=== PATIENT | male | born 1940 | race Caucasian/White ===

== ENCOUNTER 2017-01-12 12:56 | Emergency (ER) | payer MEDICARE, OTHER ==
[~2017-01-12] VITALS: Ht 167.6 cm; Wt 90.9 kg
[~2017-01-12 12:56] MED LIST: BETA30LO2 TP; CLOB15CR3 TOP; CYCL10TA9 PO; FINA5TAB9 PO; GABA600T2 PO; HYG25 PO; LIP40 PO; METF500T4 PO; METO25TA6 PO; SERT50TA PO; SILD100T PO; TERA5CAP6 PO; ZOLP5TAB6 PO
[2017-01-12 12:59] VITALS: BP 149/60; PULSE 48; RESP 16; O2SAT 99
--- NOTE | 2017-01-12 13:27 | ED.REPORT ---
HPI-Chest Pain 40 and Over Date of Service Jan 12, 2017 ED Provider: Dr. Lopez Pt is a 76 y/o male w/ a hx of HTN, HLD, DM, CAD s/p CABG x4, TIA, presenting to the ED with his due to bradycardia onset today. The patient went to Urgent Care today because he has been getting low heart rate readings on his home monitor in the 30s to 40s. The patient was experiencing mild lightheadedness this morning after standing up lasting seconds but has been asymptomatic otherwise. He denies CP, SOB, fatigue, palpitations. The patient takes Metoprolol 50 mg BID and Lisinopril 15 mg daily. The patient has been to his PCP and neurologist multiple times in the past due to episodes of lightheadedness and had some medication changes which relieved his symptoms. Nursing Notes Stated Complaint: LOW PB & PULSE/SENT BY UC/ABNORMAL EKG Chief Complaint: Dysrhythmia/Cardiac Nursing Notes Reviewed: Yes Allergies: Coded Allergies: No Known Allergies (Verified , 01/12/17) Scheduled Aspirin (Aspirin) 81 Mg Tablet 81 MG PO DAILY Atorvastatin (Lipitor) 40 Mg Tablet 40 MG PO DAILY Clobetasol Propionate/Emoll (Clobetasol Emollient 0.05% Crm) 15 Gm Cream..g. 1 APPL TOP BID Finasteride (Finasteride) 1 Mg Tablet 1 MG PO DAILY Glipizide (Glipizide) 5 Mg Tablet 5 MG PO DAILY Lisinopril (Lisinopril) 10 Mg Tablet 10 MG PO DAILY Melatonin (Melatonin) 10 Mg Capsule 10 MG PO HS Metoprolol Tartrate (Metoprolol Tartrate) 50 Mg Tablet 50 MG PO BID Terazosin (Terazosin) 5 Mg Capsule 5 MG PO HS Zolpidem (Zolpidem) 5 Mg Tablet 5 MG PO HS Scheduled PRN Cyclobenzaprine (Cyclobenzaprine) 10 Mg Tablet 10 MG PO TID PRN PRN Spasm General Time Seen by MD: 13:26 Chief Complaint Other (gregory) Hx Obtained From: Patient Arrived By: Walk-in Sudden in Onset?: No Onset Occurred: 1 - 4 hours ago Symptom Duration: 1 - 15 minutes Severity: Current: No pain currently Severity: Maximum: No pain Similar Sx Previous: Yes Past Medical History Past Medical History Carotid artery stenosis BPH Mixed hyperlipidemia Erectile dysfunction Diabetes mellitus type II Hypertension GERD Psoriasis Depression Coronary artery disease s/p CABG x4 Previous TIA in 1994, no residual deficits Depression Anxiety Osteoarthritis Past Surgical History CABG x4 Bilateral TKA's Left shoulder repair Right patellar tendon repair Carotid endarterectomy x2 Family History Noncontributory Smoking History Never Smoker Social History Alcohol Use: "Social" Drug Use: Denies drug use Other Social History: Good social support, , Local resident Ambulatory Status Independent Review of Systems Constitutional: Denies: Chills, Fever Respiratory: Denies: Non-productive cough, Shortness of breath Cardiovascular: Denies: Chest pain GI: Denies: Abdominal pain Neurologic: Reports: Dizziness, Lightheaded, Denies: Abnormal movement, Bladder dysfunction, Bowel dysfunction, Change LOC , Confusion, Focal weakness, Headache, Numbness, Problem walking, Seizure, Shaking, Slurred speech, Spinning sensation, Syncope, Unable to speak, Vision change, Weakness Complete sys rev & neg: except as marked. Physical Exam Initial Vital Signs Vital Signs (First) Date Time Temp Pulse Resp B/P Pulse Ox O2 Delivery O2 Flow Rate FiO2 01/12/17 12:59 36.5 48 16 149/60 99 Room Air Initial VS: Reviewed, Vital signs abnormal Head / Eyes: Atraumatic, Normocephalic, PERRL ENT: Mucous membranes moist, Conjunctiva normal, No scleral icterus Neck: Supple, Full range of motion Extremities: Vascular intact, Neuro intact, No swelling Skin: Warm, Dry, No cyanosis Neurologic: Alert, Oriented, Nonfocal Psychiatric: Mood/affect normal, Behavior normal, Normal thought content General/Constitutional: Awake, Alert, No acute distress, Well appearing, Cooperative, Not toxic appearing Respiratory / Chest: Breath sounds NL, Breath sounds = bilat, No respiratory distress, No rales, No rhonchi, No wheezing Cardiovascular: Regular rhythm, Heart sounds NL, No murmurs, Cap refill not delayed, Peripheral circulation NL Heart Rate / Rhythm: Positive: Bradycardia Abdomen: Atraumatic, Soft, Non-tender, No guarding, No rebound, No distention Interpretation & Diagnostics Lab Results Interpretation Result Diagram: 01/12/17 1440 01/12/17 1440 Test 01/12/17 14:40 White Blood Count 7.2th/mm3 (3.8-10.1) Red Blood Count 3.75mil/mm3 (4.40-5.80) Hemoglobin 11.6g/dL (13.8-17.2) Hematocrit 35.3% (41.0-50.0) Mean Corpuscular Volume 94.1fL (81-100) Mean Corpuscular Hemoglobin 30.9pg (27.0-35.0) Mean Corpuscular Hemoglobin Concent 32.9% (32.0-37.0) Red Cell Distribution Width 12.9% (12.3-15.4) Platelet Count 186bil/L (150-400) Neutrophils (%) (Auto) 73.4% (40-74) Lymphocytes (%) (Auto) 12.0% (14-46) Monocytes (%) (Auto) 9.2% (4-12) Eosinophils (%) (Auto) 4.5% (0-5) Basophils (%) (Auto) 0.6% (0-3) Sodium Level 134mEq/L (134-144) Potassium Level 4.9mEq/L (3.5-5.2) Chloride Level 100mEq/L (97-108) Carbon Dioxide Level 20mmol/L (18-29) Blood Urea Nitrogen 39mg/dL (8-27) Creatinine 1.94mg/dL (0.76-1.27) Estimat Glomerular Filtration Rate 36mL/min (>59) Glucose Level 76mg/dL (60-99) Calcium Level 9.2mg/dL (8.5-10.1) Magnesium Level 2.4mg/dL (1.6-2.6) Total Bilirubin 0.5mg/dL (0.0-1.2) Aspartate Amino Transf (AST/SGOT) 18U/L (0-50) Alanine Aminotransferase (ALT/SGPT) 14U/L (0-44) Alkaline Phosphatase 58U/L (25-160) Troponin T < 0.010ug/L (0.0-0.011) Total Protein 7.3g/dL (6.4-8.4) Albumin 4.3g/dL (3.4-5.0) Hold [place] Top Tube Received (Received) ECG Interpretation ECG Interpretation: Sinus rhythm rate 50 1st degree AV block Time: 13:56 Interpreted by: ED physician Normal ECG Interpretation: No acute ischemic changes X-Ray Chest Interpretation Chest Xray Interpretation: IMPRESSION: No acute cardiopulmonary process is evident. Dictated by: Jonathan Murillo M.D. on 01/12/2017 at 12:56 Approved by: Jonathan Murillo M.D. on 01/12/2017 at 12:57 View: Portable, 1 view Interpretation / Wet Read by: Interpret - Radiologist Re-Eval/Medical Decision Med Decision/Clinical Course 76-year-old male presenting with bradycardia. Patient with heart rate in the 40s and 50s. He is on metoprolol 50 mg twice daily. He reports some lightheadedness earlier today but none while he was in our care. He denied any symptoms of chest pain, difficulty breathing, lightheadedness, dizziness, lethargy, any other symptoms here. He is in sinus bradycardia on EKG. His labs are unremarkable. Patient requests to go home. He is not agreeable with staying in the hospital. I have advised him to then decrease his meToprolol to 25 mg twice daily and follow up with his primary doctor tomorrow for recheck. Time of Eval: 15:25 Re-Evaluation/Progress Note: Pt rechecked. Informed pt of plan for discharge. Pt understands and agrees with plan for discharge. F/U instructions and RTER warnings given. All questions addressed. Counseled Regarding: Diagnosis, Lab results, Need for follow-up, When/why to return to ED Discharge & Departure Primary Impression: Bradycardia Disposition: Home Discharge Condition All VS Reviewed: Yes Condition: Stable Patient Instructions: Bradycardia (ED) Additional Instructions: Thank you for seeking care at the emergency room. It is difficult for us to make definitive diagnoses in the ED but we believe that you are experiencing bradycardia caused by a high dose of Metoprolol. Our primary goal today in the Emergency Department was to evaluate you for any life-threatening conditions. Your evaluation was reassuring. Labs and chest x-ray today were normal. Begin taking a half tablet of your prescribed metoprolol twice each day instead of a full tablet. You should follow-up with your primary doctor tomorrow for a recheck. You should return to the Emergency Department immediately if you develop shortness of breath, chest pain, lightheadedness, passing out, weakness or any other concerning signs or symptoms. Thank you for letting us partake in your care today. Referrals: Alyx Seth MD (PCP) Scribe Attestation Portions of this note were transcribed by Robb Corona. I, Dr. Lopez personally performed the history, physical exam and medical decision-making; I reviewed and confirmed the accuracy of the information in the transcribed note. Signed by Giulia Hayward, 01/12/17 - 1400 copies to: Alyx Seth MD, Ben M MD Jan 12, 2017 13:27 ROBB CORONA Jan 12, 2017 13:57
[2017-01-12] MEDS ORDERED: METO50TA3 PO (13:31)
[2017-01-12] MEDS ORDERED: MELA10CA2 PO (13:31)
[2017-01-12] MEDS ORDERED: ASPI-973 PO (13:31)
[2017-01-12] MEDS ORDERED: LISI10TA PO (13:31)
[2017-01-12] MEDS ORDERED: GLPZ5T PO (13:31)
[2017-01-12] MEDS ORDERED: FINA1TAB17 PO (13:31)
--- NOTE | 2017-01-12 13:59 | DRSVH ---
PROCEDURE: X-RAY CHEST ONE VIEW, PORTABLE ([id number]) INDICATIONS: CHEST PAIN TECHNIQUE: One view of the chest was acquired. COMPARISON: [facility], CT, CT CHEST W CON, 08/26/2016, 12:15. FINDINGS: Surgical changes and devices: Postoperative changes of the left base of the neck are noted. Addition ally, there are postsurgical changes related to a prior median sternotomy. Lungs and pleura: No pleural effusions or pneumothorax. Lungs are clear. Mediastinum: Mediastinal contours appear normal. Heart size is normal. Aortic atherosclerosis is p resent. Bones and chest wall: No suspicious bony lesions. Overlying soft tissues appear unremarkable. IMPRESSION: No acute cardiopulmonary process is evident. Dictated by: Jonathan Murillo M.D. on 01/12/2017 at 12:56 Approved by: Jonathan Murillo M.D. on 01/12/2017 at 12:57
[2017-01-12 14:50] LABS: BASOPHILS % (AUTO) 0.6 % (0-3); EOSINOPHILS % (AUTO) 4.5 % (0-5); MONOCYTES % (AUTO) 9.2 % (4-12); Mean Corpuscular Hemoglobin 30.9 pg (27.0-35.0); Mean Corpuscular Volume 94.1 fL (81-100); NEUTROPHILS % (AUTO) 73.4 % (40-74); Platelet Count 186 bil/L (150-400)
[2017-01-12 15:07] VITALS: BP 132/44; PULSE 50; RESP 16; O2SAT 90
[2017-01-12 15:15] LABS: TROPONIN T < 0.010 ug/L (0.0-0.011)
[2017-01-12 15:24] LABS: Magnesium 2.4 mg/dL (1.6-2.6)
[2017-01-12 15:49] VITALS: BP 154/50; PULSE 45; RESP 15; O2SAT 97
== END 2017-01-12 15:47 | disposition home or self-care (01) ==
LOC: SED 12:56
DX: R00.1 Bradycardia, unspecified (principal); I10 Essential (primary) hypertension; E78.5 Hyperlipidemia, unspecified; E11.9 Type 2 diabetes mellitus without complications; I25.10 Atherosclerotic heart disease of native coronary artery without angina pectoris; Z86.79 Personal history of other diseases of the circulatory system; Z89.511 Acquired absence of right leg below knee; Z89.512 Acquired absence of left leg below knee; Z95.1 Presence of aortocoronary bypass graft; Z86.73 Personal history of transient ischemic attack (TIA), and cerebral infarction without residual deficits; Z79.84 Long term (current) use of oral hypoglycemic drugs; Z79.82 Long term (current) use of aspirin

== ENCOUNTER 2017-01-26 12:57 | Inpatient (IN) | payer MEDICARE, OTHER ==
[~2017-01-26] VITALS: Ht 165.1 cm; Wt 93.6 kg
[2017-01-26] VITALS (11 sets, daily range): BP systolic 111–243; BP diastolic 62–99; PULSE 68–88; RESP 16–21; O2SAT 92–100
[~2017-01-26 12:57] MED LIST changes: +ASPI-973 PO; -BETA30LO2 TP; +FINA1TAB17 PO; -FINA5TAB9 PO; -GABA600T2 PO; +GLPZ5T PO; -HYG25 PO; +LISI10TA PO; +MELA10CA2 PO; -METF500T4 PO; -METO25TA6 PO; +METO50TA3 PO; -SERT50TA PO; -SILD100T PO
--- NOTE | 2017-01-26 13:10 | ED.REPORT ---
HPI-General Illness Date of Service Jan 26, 2017 ED Provider: Antonio Olguin MD Pt is a 76 year old male with a hx of CABG, bilateral carotid endarterectomy, HTN, and bilateral knee replacement presenting to the ED from complaining of 9/10 epigastric pain sudden onset at 0200 this morning when he was sleeping. He was unable to sleep last night due to pain. He describes it as non-radiating epigastric to substernal pain, and denies any radiation of pain to the back. No notable alleviating or exacerbating factors, including exertion. It is been persistent throughout the day but somewhat improved now without intervention. No SOB, vision changes, swelling in the legs, constipation, diarrhea, nausea, vomiting, or urinary symptoms. Denies hx of heart attack after the CABG. He reports that the pain when he had a heart attack 20 years ago was nothing like this, and it was higher up. Nursing Notes Stated Complaint: FROM Chief Complaint: Chest Pain Nursing Notes Reviewed: Yes Allergies: Coded Allergies: No Known Allergies (Verified , 01/26/17) Scheduled ([laxative pill]) 1 TAB PO QAM Aspirin (Aspirin) 81 Mg Tablet 81 MG PO HS Atorvastatin (Lipitor) 40 Mg Tablet 40 MG PO DAILY Cholecalciferol (Vitamin D3) (Vitamin D3) 5,000 Unit Tab.rapdis 5,000 UNIT PO DAILY Finasteride (Finasteride) 1 Mg Tablet 0.5 MG PO HS Glipizide ER (Glipizide ER) 2.5 Mg Tab.er.24 2.5 MG PO DAILY Lisinopril (Lisinopril) 2.5 Mg Tablet Unknown Dose PO DAILY Melatonin/Pyridoxine HCl (B6) (Melatonin 10 mg Tablet) 1 Each Tab.mphase 1 EACH PO HS Metoprolol Tartrate (Metoprolol Tartrate) 25 Mg Tablet 12.5 MG PO BID Terazosin (Terazosin) 5 Mg Capsule 5 MG PO HS Zolpidem (Zolpidem) 5 Mg Tablet 5 MG PO HS Scheduled PRN Cyclobenzaprine (Cyclobenzaprine) 10 Mg Tablet 10 MG PO TID PRN PRN Spasm General Time Seen by MD: 13:09 Chief Complaint Chest pain Hx Obtained From: Patient Arrived By: Walk-in Sudden in Onset?: Yes Onset Occurred: 9 - 12 hours ago Symptom Duration: Since onset Location: : Abdomen: Chest Quality: Painful Radiation: : Does not radiate Severity: Current: Pain level 9 out of 10 Severity: Maximum: Pain level 10 out of 10 Recent Healthcare: No recent doctor visit, No recent hospitalization Similar Sx Previous: No Past Medical History Past Medical History Carotid artery stenosis BPH Mixed hyperlipidemia Erectile dysfunction Diabetes mellitus type II Hypertension GERD Psoriasis Depression Coronary artery disease s/p CABG x4 Previous TIA in 1994, no residual deficits Depression Anxiety Osteoarthritis Past Surgical History CABG x4 Bilateral TKA's Left shoulder repair Right patellar tendon repair Carotid endarterectomy x2 Family History Noncontributory Smoking History Never Smoker Social History Alcohol Use: "Social" Drug Use: Denies drug use Other Social History: Good social support, , Local resident Ambulatory Status Independent Review of Systems Full Review of Systems Constitutional: Denies: Chills, Fever Eyes: Denies: Visual loss bilateral Ears / Nose / Throat: Denies: Nasal congestion Respiratory: Denies: Shortness of breath Cardiovascular: Reports: Chest pain GI: Reports: Abdominal pain, Denies: Bloody/tarry stool, Constipation, Diarrhea, Nausea, Vomiting Male: Denies Dysuria, Denies Urinary frequency, Denies Urinary urgency, Denies Urination decreased, Denies Urination increased Musculoskeletal: Denies: Back pain Skin: Denies Swelling Neurologic: Denies: Vision change Complete sys rev & neg: except as marked. Physical Exam Nursing note and vitals reviewed. Constitutional: Well-developed, well-nourished. Not diaphoretic. Head: Normocephalic and atraumatic. Mouth/Throat: Oropharynx is clear and moist. No oropharyngeal exudate. Eyes: EOM are normal. Pupils are equal, round, and reactive to light. Neck: Supple, no tracheal deviation. Cardiovascular: Normal rate, regular rhythm. Equal and intact distal pulses throughout. No peripheral edema. Pulmonary/Chest: Effort normal and breath sounds normal. No respiratory distress. Abdominal: Soft. No distension. Bowel sounds present. Mild epigastric tenderness. Musculoskeletal: Range of motion grossly intact, moving all extremities. No edema or tenderness appreciated. Neurological: AOx3. Grossly nonfocal exam. Strength and sensation intact and equal to bilateral upper and lower extremities. Skin: Warm and dry, no rashes or pallor appreciated. Psychiatric: Appropriate mood and affect. Behavior appears normal. Vital Signs Vital Signs Date Time Temp Pulse Resp B/P Pulse Ox O2 Delivery O2 Flow Rate FiO2 01/26/17 16:23 76 21 158/71 99 Nasal Cannula 2 01/26/17 15:37 85 16 111/65 98 Room Air 01/26/17 13:50 86 21 208/72 92 Room Air 01/26/17 13:00 36.7 70 20 243/99 100 Room Air Initial VS: Reviewed Interpretation & Diagnostics Lab Results Interpretation Result Diagram: 01/26/17 1318 01/26/17 1318 Test 01/26/17 13:18 01/26/17 16:00 White Blood Count 13.7th/mm3 (3.8-10.1) Red Blood Count 3.89mil/mm3 (4.40-5.80) Hemoglobin 12.2g/dL (13.8-17.2) Hematocrit 35.7% (41.0-50.0) Mean Corpuscular Volume 91.8fL (81-100) Mean Corpuscular Hemoglobin 31.4pg (27.0-35.0) Mean Corpuscular Hemoglobin Concent 34.2% (32.0-37.0) Red Cell Distribution Width 12.7% (12.3-15.4) Platelet Count 205bil/L (150-400) Neutrophils (%) (Auto) 91.7% (40-74) Lymphocytes (%) (Auto) 3.5% (14-46) Monocytes (%) (Auto) 3.9% (4-12) Eosinophils (%) (Auto) 0.1% (0-5) Basophils (%) (Auto) 0.2% (0-3) Sodium Level 133mEq/L (134-144) Potassium Level 4.6mEq/L (3.5-5.2) Chloride Level 96mEq/L (97-108) Carbon Dioxide Level 18mmol/L (18-29) Blood Urea Nitrogen 34mg/dL (8-27) Creatinine 1.49mg/dL (0.76-1.27) Estimat Glomerular Filtration Rate 49mL/min (>59) Glucose Level 187mg/dL (60-99) Calcium Level 9.7mg/dL (8.5-10.1) Magnesium Level 1.8mg/dL (1.6-2.6) Total Bilirubin 0.5mg/dL (0.0-1.2) Aspartate Amino Transf (AST/SGOT) 21U/L (0-50) Alanine Aminotransferase (ALT/SGPT) 16U/L (0-44) Alkaline Phosphatase 58U/L (25-160) Total Creatine Kinase 140U/L (21-232) Creatine Kinase MB 5.8ng/mL (0.0-10.4) Creatine Kinase MB % % (0.0-5.0) Troponin T 0.064ug/L (0.0-0.011) Total Protein 7.3g/dL (6.4-8.4) Albumin 4.4g/dL (3.4-5.0) Lipase 114U/L (13-60) Thyroid Stimulating Hormone (TSH) 2.500uIU/mL (0.450-4.500) Urine Color Yellow (YELLOW) Urine Appearance Clear (CLEAR,HAZY) Urine pH 5.5 (5.0-8.0) Urine Specific Brant 1.020 (1.003-1.035) Urine Protein 100mg/dL (NEG,TRACE) Urine Glucose (UA) Negativemg/dL (NEGATIVE) Urine Ketones Negativemg/dL (NEGATIVE) Urine Occult Blood Small (NEGATIVE) Urine Nitrite Negative (NEGATIVE) Urine Bilirubin Negative (NEGATIVE) Urine Urobilinogen Normalmg/dL (NORMAL) Urine Leukocyte Esterase Negative (NEGATIVE) Urine RBC 0-2/hpf (0-2) Urine WBC 0-5/hpf (0-5) Urine Epithelial Cells Occasional/hpf (NONE-MOD) Urine Crystals None seen (NONE SEEN) Urine Bacteria None/hpf (NONE-FEW) Urine Hyaline Casts None/lpf (NONE) Urine Granular Casts None seen (NONE SEEN) Urine Waxy Casts None seen (NONE SEEN) Urine Red Blood Cell Casts None seen (NONE SEEN) Urine White Blood Cell Casts None seen (NONE SEEN) Urine Mucus None seen (None Seen) Urine Trichomonas None seen (NONE SEEN) Urine Yeast None (NONE SEEN) Urinalysis Comment None Urine Culture Reflexed Not indicated ECG Interpretation ECG Interpretation: No significant change from previous. Time: 13:16 Normal ECG Interpretation: Normal rate (73), Normal sinus rhythm X-Ray Chest Interpretation Chest Xray Interpretation: IMPRESSION: Prior sternotomy wires, presumed prior CABG, no acute disease. Dictated by: Macho Glover M.D. on 01/26/2017 at 13:56 View: Portable, 1 view Interpretation / Wet Read by: Interpret - Radiologist CT Abd / Pelvis Interpretation IMPRESSION: 1. No acute intra-abdominal findings. Specifically, no findings to suggest acute pancreatitis in the setting of an elevated lipase. Normal 2. Normal appendix. 3. Diverticulosis. No acute diverticulitis. 4. Cholelithiasis. No findings to suggest choledocholithiasis or acute cholecystitis. 5. Mild bilateral renal atrophy and marked perinephric fat stranding suggesting chronic renal disease. No hydronephrosis or nephrolithiasis. 6. Extensive arterial atherosclerosis. 7. Displaced L5-S1 spondylolysis. Dictated by: Brigette Ferrara M.D. on 01/26/2017 at 16:40 Study type: Abdominal CT IV contrast Interpretation / Wet Read by: Interpret - Radiologist Re-Eval/Medical Decision Med Decision/Clinical Course In summary, 76-year-old male with a complex past medical history including CABG , bilateral carotid endarterectomy, hypertension, CKD presenting to the ED for evaluation of chest pain that woke him up from sleep early this morning. Differential is broad and includes ACS, pneumothorax, aortic dissection, PE, pancreatitis, intra-abdominal mass, etc. He does not have any dyspnea whatsoever, nor pleuritic symptoms; low risk by Well's criteria. No evidence of pneumothorax on exam or chest x-ray. Aortic dissection seems extremely unlikely given the gradual improvement of his pain without intervention, no widened mediastinum, not radiating through to the back. EKG demonstrates no acute ischemic changes, however patient's initial troponin of 0.064. Chest x- ray negative for acute abnormality. Rest of initial workup notable for a white blood cell count of 13.7 with 91.7% neutrophils, hemoglobin stable from previous , creatinine of 1.49 down from 1.94 2 weeks ago. Lipase 114. Urinalysis pending at time of documentation. CT of the patient's abdomen and pelvis was obtained to ensure no mass or other obvious etiology for his symptoms; this was negative for any acute abnormality that would account for his presentation at this time-rest of findings as noted above. He was given nitroglycerin here in the ED with resolution of symptoms. Given patient's cardiac history, discussed patient with Dr. Harris of cardiology, noted below. We discussed holding off on heparin for now, however he will need his troponins trended and to be reassessed. I discussed the findings above with the patient at length. Plan admission for further evaluation and management. Time of Eval: 15:16 Patient Status: Condition improved Re-Evaluation/Progress Note: Pt pain at 0/10 after Nitro. Discussed plan for CT scan and admission. Consultation #1: Referral / Consult Name: Jonnie Luna MD Consulted With: Hospitalist Call Returned at: 15:37 Envelope Press Operator: Will see patient, Agrees with plan, Accepts admit Consultation #2: Referral / Consult Name: Alva Harris MD Consulted With: Cardiology Call Returned at: 15:53 Note: Hold off on Heparin for now. Counseled Regarding: Diagnosis, Lab results, Need for admission Discharge & Departure Primary Impression: Non-STEMI (non-ST elevated myocardial infarction) Disposition: ADMITTED TO HOSPITAL Discharge Condition All VS Reviewed: Yes Condition: Stable Referrals: Alyx Seth MD (PCP) Nellyibdakotah Attestation Portions of this note were transcribed by iA Marr. I, Dr. Olguin personally performed the history, physical exam and medical decision-making; I reviewed and confirmed the accuracy of the information in the transcribed note. Signed by: Giulia Madera, 01/26/2017. copies to: Alyx Seth MD, William B MD Jan 26, 2017 13:09 AI MARR Jan 26, 2017 13:33
[2017-01-26 13:28] LABS: BASOPHILS % (AUTO) 0.2 % (0-3); EOSINOPHILS % (AUTO) 0.1 % (0-5); MONOCYTES % (AUTO) 3.9 % (4-12); Mean Corpuscular Hemoglobin 31.4 pg (27.0-35.0); Mean Corpuscular Volume 91.8 fL (81-100); NEUTROPHILS % (AUTO) 91.7 % (40-74); Platelet Count 205 bil/L (150-400)
[2017-01-26 13:49] LABS: Magnesium 1.8 mg/dL (1.6-2.6)
[2017-01-26 13:56] LABS: TROPONIN T 0.064 ug/L (0.0-0.011)
--- NOTE | 2017-01-26 14:58 | DRSVH ---
PROCEDURE: X-RAY CHEST ONE VIEW, PORTABLE ([id number]) INDICATIONS: epigastric pain TECHNIQUE: One view of the chest was acquired. COMPARISON: [facility], CR, XR CHEST 1VW (PORTABLE), 01/12/2017, 13:29. [facility], CR, XR CHEST 2VW, 07/08/2016, 9:54. FINDINGS: Surgical changes and devices: Sternotomy wires. Lungs and pleura: No pleural effusions or pneumothorax. Lungs are clear. Mediastinum: Mediastinal contours appear normal. Heart size is normal. Bones and chest wall: No suspicious bony lesions. Overlying soft tissues appear unremarkable. IMPRESSION: Prior sternotomy wires, presumed prior CABG, no acute disease. Dictated by: Macho Glover M.D. on 01/26/2017 at 13:56 Approved by: Macho Glover M.D. on 01/26/2017 at 13:56
[2017-01-26] MEDS ORDERED: 0.9% Sodium Chloride 1,000 ML IV SCH (15:43)
[2017-01-26] MEDS ORDERED: Alum-Mag Hydrox-Simeth 30 mL Suspension PO PRN (15:45)
[2017-01-26] MEDS ORDERED: Atropine 1 mg/10 mL (Code) Syringe IVPUSH PRN (15:45)
[2017-01-26] MEDS ORDERED: Ondansetron 2 mg/mL 2 mL Inj IVPUSH PRN (15:45)
[2017-01-26] MEDS ORDERED: Senna-Docusate 8.6-50 mg Tablet PO PRN (15:45)
[2017-01-26] MEDS ORDERED: Polyethylene Glycol (PEG) 17 Gm Powder PO PRN (15:45)
--- NOTE | 2017-01-26 16:48 | DRSVH ---
PROCEDURE: CT ABDOMEN AND PELVIS WITHOUT CONTRAST ([id number]) INDICATIONS: epigastric/chest pain, mild elev lipase, trop elev TECHNIQUE: Noncontrast 5 mm thick sections acquired from the diaphragms to the symphysis. 5 mm coronal and sagi ttal reformats were then performed. For radiation dose reduction, the following was used: automated exposure control, adjustment of mA and/or kV according to patient size. COMPARISON: None. FINDINGS: Image quality: Excellent. ABDOMEN: Lung bases: Lung bases are clear. Heart size is normal. Solid organs: Liver and spleen are normal in size. Innumerable punctate stones are layered in the ga llbladder fundus. No gallbladder wall thickening or pericholecystic fluid. Pancreas is normal in cont ours. No adrenal nodules. The kidneys are mildly atrophic with extensive perinephric fat stranding. No nephrolithiasis or hydronephrosis. Peritoneum and bowel: Unenhanced bowel loops demonstrate normal wall thickness and caliber. The appe ndix is thin walled and gas filled. There are scattered sigmoid diverticula. No evidence for divertic ulitis. No free fluid or air. Nodes and vessels: No retroperitoneal or mesenteric adenopathy by size criteria. Aorta and inferior vena cava are normal in caliber. Dense atheromatous calcifications are present throughout the abdom inal aorta. Miscellaneous: No ventral hernias. PELVIS: Genitourinary: Bladder wall thickness is normal. Miscellaneous: No inguinal hernias or adenopathy. Bones: No suspicious bony lesions. No vertebral body compression fractures. There are bilateral di splaced L5-S1 pars interarticularis defects with grade I anterolisthesis. IMPRESSION: 1. No acute intra-abdominal findings. Specifically, no findings to suggest acute pancreatitis in the setting of an elevated lipase. Normal 2. Normal appendix. 3. Diverticulosis. No acute diverticulitis. 4. Cholelithiasis. No findings to suggest choledocholithiasis or acute cholecystitis. 5. Mild bilateral renal atrophy and marked perinephric fat stranding suggesting chronic renal disease . No hydronephrosis or nephrolithiasis. 6. Extensive arterial atherosclerosis. 7. Displaced L5-S1 spondylolysis. Dictated by: Brigette Ferrara M.D. on 01/26/2017 at 16:40 Approved by: Brigette Ferrara M.D. on 01/26/2017 at 16:46
[2017-01-26 17:01] LABS: APPEARANCE,URINE CLEAR (CLEAR,HAZY); COLOR,URINE YELLOW (YELLOW); OCCULT BLOOD,URINE SMALL (NEGATIVE); PH,URINE 5.5 (5.0-8.0); UROBILINOGEN,URINE NORMAL (NORMAL)
[2017-01-26 17:39] LABS: Creatine Kinase 140 U/L (21-232)
[2017-01-26] MEDS: Sodium Chloride LOK Flush 10 mL Syringe IVFLUSH SCH ×2 (17:41→23:23)
--- NOTE | 2017-01-26 18:03 | NUR ---
Arrived 1700 - Report received from Ying MEEHAN in the ED. She said he would be admitted for chest pain, elevated troponin levels, and hypertension. 1719 - He arrived to [facility] 2020 and was settled into his room. Denies chest/abdominal discomfort. Vitals and assessment completed (no current skin issues). Normal saline @80 mls/hour was started on him. He is currently eating dinner. Will attempt to complete his admit once he is through. Admit Nurse is working on his Medication Rec right now. Care continues. Addendum: 01/26/17 at 1844 by JAZZY PERDOMO RN 1831 - Paged Dr. Luna who called back and informed him that the patient's blood pressure upon arrival was 198/88. He said to give his 2030 doses of Metoprolol and Amlodipine now. Called the Pharmacy as the medications were not showing up under his profile in the [facility]. They said that is because the medications are not scheduled right now. They said they would change the medication times so they can be given. Will give the medications shortly. Care continues. Addendum: 01/26/17 at 1944 by JAZZY PERDOMO RN Admit - Only partially completed. assistant casino shift manager nurse notified. Care continues.
--- NOTE | 2017-01-26 18:16 | PCM.HPMED ---
Subjective Date of Service Jan 26, 2017 Primary Provider: Admitting Physician: Jonnie Luna MD Primary Care Physician: Alyx Seth MD Attending Physician: Jonnie Luna MD Admit Status: From the Emergency Department, Admit to [facility] Team Chief Complaint: 76-year-old male with a history of coronary artery disease presents with acute epigastric pain History of Present Illness: The patient has long-standing history of coronary artery disease with CABG in 2008. He has no ongoing angina complaint. He was in his usual state of health until 2 AM on the day of admission when ambulating the bathroom he noticed a abrupt onset of epigastric pain. The pain is sharp and severe not dull and achy. It was constant in intensity. The pain is localized to the epigastrium and lower sternum. No radiating pattern. There is no exacerbating or precipitating factor. He took Tums and Gaviscon with no relief at home. Symptoms started on holiday in [facility]. He awakened this morning and flew home then presented directly to urgent care clinic for assessment. He was referred to the emergency department. The pain was continuous throughout this time. Subsequently relieved nitroglycerin in the hospital with no significant effect. It abated spontaneously after approximately 12 hours. There is no associated nausea vomiting diaphoresis shortness of breath. This is the first episode of pain like this that he has experienced. He describes left precordial crushing sensation with his past coronary artery disease feels that his current complaint is distinctly different. He has had no recent exertional chest complaint. He has had heartburn occasionally in the past but feels this is different. He does not have frequent GERD or gastritis symptoms. He reports epigastric tenderness with palpation at the urgent care clinic. He has no history of pancreatitis. Review of Systems: Complete 11 system ROS performed with significant findings noted in the history of present illness. Also reports frequent DJD knee pain which limits his exertional abilities. He also reports a long-standing history of esophageal symptoms with dysphagia and vomiting difficult to swallow food items. Allergies Coded Allergies: No Known Allergies (Verified , 01/12/17) Home Medications Aspirin 81 mg daily Atorvastatin 40 mg daily Colace call several 5000 units daily Cyclobenzaprine 10 mg 3 times a day when necessary Finasteride 0.5 mg daily Lisinopril 2.5 mg daily Metoprolol 12.5 mg twice a day Terazosin 5 mg at bedtime Zolpidem 5 mg at bedtime when necessary PMH # Coronary artery disease - CABG 2008, recent echocardiogram LVEF 55% in 2016. Follow[address] Mckenzie. # status post bilateral carotid endarterectomy # Hypertension # Type II diabetes mellitus # CK D - followed by Dr. Buckley. On a renal diet. # BPH # Degenerative joint disease status post bilateral knee arthroplasty Family History Mother with coronary disease at age 68, father alive until his 80s, one brother with parkinsonism, no sisters, 1 son with hypertension. Social History Occupation: vehicle maintenance supervisor mobile [employer] Hx Alcohol Use: Yes (OCCAS.) Hx Substance Use: No Hx Tobacco Use: No Smoking Status: Never Smoker Living Arrangement: with Family (with , full activity ADLs and no ambulatory impairment) Exam Vital Signs Vital Sign - Last Date Time Temp Pulse Resp B/P Pulse Ox O2 Delivery O2 Flow Rate FiO2 01/26/17 17:35 80 01/26/17 17:24 36.5 18 198/88 99 Room Air 01/26/17 17:10 2 Exam General: Obese older gentleman in no acute distress HEENT: sclerae anicteric, oral mucosa moist Neck: no JVD, supple no adenopathy Chest: clear to auscultation, no wheeze or rales Cardiac: S1S2, regular, II/ systolic murmur Abdomen: BS normal, non-tender Extremities: No pitting edema; left leg seems minimally swollen compared to right Neuro: A&O, cranial nerves symmetric, motor strength 5/5, coordination normal, reduced vibratory sensation, intact light touch Lab and Diagnostics Labs Troponin at 13:18 0.064 Lipase 114 Result Diagram: 01/26/17 1318 01/26/17 1318 X-Rays, CTs and MRIs PROCEDURE: CT ABDOMEN AND PELVIS WITHOUT CONTRAST ([id number]) IMPRESSION: 1. No acute intra-abdominal findings. Specifically, no findings to suggest acute pancreatitis in the setting of an elevated lipase. 2. Normal appendix. 3. Diverticulosis. No acute diverticulitis. 4. Cholelithiasis. No findings to suggest choledocholithiasis or acute cholecystitis. 5. Mild bilateral renal atrophy and marked perinephric fat stranding suggesting chronic renal disease. No hydronephrosis or nephrolithiasis. 6. Extensive arterial atherosclerosis. 7. Displaced L5-S1 spondylolysis. Dictated by: Brigette Ferrara M.D. on 01/26/2017 at 16:40 PROCEDURE: X-RAY CHEST ONE VIEW, PORTABLE ([id number]) IMPRESSION: Prior sternotomy wires, presumed prior CABG, no acute disease. Dictated by: Macho Glover M.D. on 01/26/2017 at 13:56 . 12-lead ECG 01/26/17 at 13:16 (personally reviewed) Sinus rhythm rate 75. Possibly first-degree AV block. Normal axes. QTc 463. No acute ST or T-wave changes. Assessment & Plan 76-year-old man with history of coronary disease presents with acute onset epigastric and lower sternal pain. The history is current complaints does not seem to be cardiac. However he has high cardiac risk. Differential diagnosis: Peptic disease, esophageal spasm, acute pancreatitis and less likely colon dissection, cardiac ischemia, pneumonia or musculoskeletal pain. # Epigastric and Chest pain, acute, present on admission. - Serial troponins - Echocardiogram to assess for focal wall motion abnormality - Monitor clinically for recurrent chest pain, treat with nitrates and morphine as needed. - High-dose oral pantoprazole and consider GI workup if the patient rules out. - Guaiac stool - When necessary antacid # Elevated troponin, acute, present on admission. In the setting of moderate CKD troponin is difficult to interpret. It is minimally elevated after at least 10 hours of continuous chest pain. Low to moderate probability of acute coronary ischemia - Follow serial troponin - No heparin unless recurrent chest pain with bump in troponin or EKG changes - No cardiology consult at this time # Coronary artery disease, chronic. - Continue aspirin and atorvastatin # Chronic kidney disease. Recent serum creatinine from 12/2016 was 1.94. Currently admission 1.49 is slightly improved. - Monitor BMP - Monitor electrolytes # Diabetes mellitus, type II, chronic. Recently well controlled on glipizide. - 4 times a day capillary blood glucose - Glucose control goals: Random less than 180, fasting less than 140, none less than 70 - Insulin as needed, divided 50-50 long-acting and nutritional/correctional # Elevated lipase, acute, present on admission. Significance of this pancreatic imaging is unremarkable. - Repeat lipase with any recurrence of epigastric - Consider GI workup as cardiac issues settle out. Pain Evaluation: Adequate Pain Control GI Prophylaxis: Proton Pump Inhibitor VTE Prophylaxis: Sub-Q Heparin (Unfractionated) Resuscitation Status: CPR: Attempt Resuscitation Time spent 70 minutes Jonnie Luna MD Jan 26, 2017 18:16
[2017-01-26] MEDS ORDERED: METO25TA6 PO (18:20)
[2017-01-26] MEDS ORDERED: CHOL500062 PO (18:20)
[2017-01-26] MEDS ORDERED: MELA1TAB21 PO (18:20)
[2017-01-26] MEDS ORDERED: LISI2.5T PO (18:20)
[2017-01-26] MEDS ORDERED: GLIP2.5T2 PO (18:25)
[2017-01-26] MEDS ORDERED: [UNRECOGNIZED DRUG - REMARK] PO (18:26)
[2017-01-26] MEDS ORDERED: Glucose 40% Oral Gel 15 Gm Tube PO PRN (18:45)
[2017-01-26] MEDS ORDERED: Dextrose 10% 250 ML IV PRN (19:00)
[2017-01-26] MEDS: Pantoprazole 40 mg ER24 Tablet PO SCH (19:11)
--- NOTE | 2017-01-26 19:39 | NUR ---
1914 - His blood pressure medication were given early per Dr. Luna's orders. Care continues.
[2017-01-26] MEDS ORDERED: Insulin GLARgine 100 Unit/mL Syringe SUBQ SCH (21:00)
[2017-01-26] MEDS: Heparin 5,000 Unit/mL Inj SUBQ SCH (21:11)
[2017-01-26] MEDS: Insulin LISPRO 300 Unit/3 mL Inj SUBQ SCH (21:27)
[2017-01-26 23:38] LABS: Creatine Kinase 108 U/L (21-232)
[2017-01-27 03:06] VITALS: BP 135/73; PULSE 74; RESP 18; O2SAT 96
[2017-01-27 03:33] LABS: BASOPHILS % (AUTO) 0.2 % (0-3); EOSINOPHILS % (AUTO) 1.7 % (0-5); MONOCYTES % (AUTO) 11.2 % (4-12); Mean Corpuscular Volume 93.5 fL (81-100); NEUTROPHILS % (AUTO) 77.6 % (40-74); Platelet Count 169 bil/L (150-400)
--- NOTE | 2017-01-27 04:56 | NUR ---
HTN / No Pain / Tele / Blood Glucose Pt was hypertensive at the beginning of the shift with SBPs at 158. BPs reduced overnight with SBPs now in the 147 and 135s. No c/o chest pain, Tele SR 60-70s per Ramp Lead. No c/o abd pain. No c/o SOB, RA sats 96-98%. Blood glucose at HS was 143, medicated with 20 units Lantus. Blood glucose re-check this AM was 90.
[2017-01-27] MEDS: Insulin LISPRO 300 Unit/3 mL Inj SUBQ SCH (08:00)
[2017-01-27] MEDS: Sodium Chloride LOK Flush 10 mL Syringe IVFLUSH SCH (08:30)
[2017-01-27 08:58] VITALS: BP 133/57; PULSE 66; RESP 16; O2SAT 98
[2017-01-27] MEDS: Pantoprazole 40 mg ER24 Tablet PO SCH (09:27)
[2017-01-27] MEDS: Heparin 5,000 Unit/mL Inj SUBQ SCH (09:27)
[2017-01-27] MEDS ORDERED: PANT20TA2 PO (10:31)
--- NOTE | 2017-01-27 10:34 | PCM.DIMED ---
Discharge Instructions Date of Service Jan 27, 2017 Dates of Hospitalization Jan 26, 2017 at 17:05 Discharge Diagnosis Discharge Diagnosis Epigastric pain; Elevated troponin level; Chronic kidney disease; Type II diabetes mellitus; Medication Instructions Additional med instructions The prescription is given for pantoprazole to reduce acid in the stomach. We recommend to take this for 1 month and then consider discontinuing if you have no recurrence of symptoms. Diet Discharge Diet: No restrictions Activity Discharge Activity: No restrictions Call your provider Call your provider for: Other (stomach or chest pain) Patient Instructions Patient Instructions We did not establish a clear diagnosis of your stomach and lower anterior chest pain. It seems most likely that this is related to the stomach or esophagus. It is also possible this was related to the pancreas. Although the blood test for heart injury was elevated, this is due to your chronic kidney disease. You did not show evidence of a myocardial infarction. It is important that you be reevaluated if you have recurrence of your symptoms. Follow-up Provider: Alyx Seth MD Follow-up with PCP in: 1 week (for posthospitalization follow-up appointment) Provider: Yemi Mckenzie MD Follow-up in: Other (at your next scheduled follow-up, or sooner if you have recurrent symptoms) Jonnie Luna MD Jan 27, 2017 10:34
[2017-01-27 11:26] VITALS: BP 146/64; PULSE 58; O2SAT 98
--- NOTE | 2017-01-27 11:40 | NUR ---
Discharge 0900 - Dr. Luna and Dr. Pino assessed the patient and said he would be discharging today. 0950 - Discussed his care with Dr. Luna, Dr Pino, and the rest of the multidisciplinary care team during morning rounds. 1140 - He discharged at this times. His vitals were taken before, one IV removed intact, and his telemetry was removed. He declined to have his blood glucose taken before discharge. Discussed and gave him his discharge paperwork (instructions and care notes). Electronic prescription already sent for Protonix, although, Dr. Luna told the patient that he could take [id number] Omeprazole instead if his insurance doesn't cover the Protonix. He took all his belongings. He was taken via wheelchair by the FL[employer] down to the car right outside of the hospital. He did complain about his home medications not being ordered last night and not getting "my Ambien until 1130/12 pm." But, he ended it by thanking staff for their excellent care.
--- NOTE | 2017-01-27 16:35 | PCM.DC.MED ---
Discharge Summary Date of Service Jan 27, 2017 Dates of Hospitalization Date of Hospital Admission Jan 26, 2017 at 17:05 Date of Discharge: Jan 27, 2017 Providers: Admitting Physician: Ra De Los Santos MD Primary Care Physician: Alyx Seth MD Attending Physician: Ra De Los Santos MD Diagnosis at Time of Discharge Diagnosis at Time of Discharge Epigastric pain; Elevated troponin level; Chronic kidney disease; Type II diabetes mellitus; Procedures XRay, CTs & MRIs PROCEDURE: CT ABDOMEN AND PELVIS WITHOUT CONTRAST ([id number]) IMPRESSION: 1. No acute intra-abdominal findings. Specifically, no findings to suggest acute pancreatitis in the setting of an elevated lipase. 2. Normal appendix. 3. Diverticulosis. No acute diverticulitis. 4. Cholelithiasis. No findings to suggest choledocholithiasis or acute cholecystitis. 5. Mild bilateral renal atrophy and marked perinephric fat stranding suggesting chronic renal disease. No hydronephrosis or nephrolithiasis. 6. Extensive arterial atherosclerosis. 7. Displaced L5-S1 spondylolysis. Dictated by: Brigette Ferrara M.D. on 01/26/2017 at 16:40 PROCEDURE: X-RAY CHEST ONE VIEW, PORTABLE ([id number]) IMPRESSION: Prior sternotomy wires, presumed prior CABG, no acute disease. Dictated by: Macho Glover M.D. on 01/26/2017 at 13:56 . ECG 12 Lead 01/26/17 at 13:16 (personally reviewed) Sinus rhythm rate 75. Possibly first-degree AV block. Normal axes. QTc 463. No acute ST or T-wave changes. Brief History History of Present Illness (per admission note): The patient has long-standing history of coronary artery disease with CABG in 2008. He has no ongoing angina complaint. He was in his usual state of health until 2 AM on the day of admission when ambulating the bathroom he noticed a abrupt onset of epigastric pain. The pain is sharp and severe not dull and achy. It was constant in intensity. The pain is localized to the epigastrium and lower sternum. No radiating pattern. There is no exacerbating or precipitating factor. He took Tums and Gaviscon with no relief at home. Symptoms started on holiday in [facility]. He awakened this morning and flew home then presented directly to urgent care clinic for assessment. He was referred to the emergency department. The pain was continuous throughout this time. Subsequently relieved nitroglycerin in the hospital with no significant effect. It abated spontaneously after approximately 12 hours. There is no associated nausea vomiting diaphoresis shortness of breath. This is the first episode of pain like this that he has experienced. He describes left precordial crushing sensation with his past coronary artery disease feels that his current complaint is distinctly different. He has had no recent exertional chest complaint. He has had heartburn occasionally in the past but feels this is different. He does not have frequent GERD or gastritis symptoms. He reports epigastric tenderness with palpation at the urgent care clinic. He has no history of pancreatitis. Hospital Course # Epigastric and Chest pain, acute, present on admission. - No recurrence of pain after admission - Trial of oral pantoprazole and consider GI workup if symptoms recur. - When necessary antacid # Lipase elevated, present on admission. 114 on admission, declined to 30 for 1 day later. No evidence of choledocholithiasis. Transient self-limited pain with negative abdominal CT does not suggest a diagnosis of acute pancreatitis. Nonspecific but likely related to upper GI source of symptoms # Elevated troponin, acute, present on admission. Serial troponin 0.064, 0.05 In the setting of moderate CKD troponin is difficult to interpret. It is minimally elevated after at least 10 hours of continuous chest pain. Low to moderate probability of acute coronary ischemia -Clinical impression is that this is noncardiac gastrointestinal pain # Coronary artery disease, chronic. - Continue aspirin and atorvastatin # Chronic kidney disease. Recent serum creatinine from 12/2016 was 1.94. Currently admission 1.49 is slightly improved. - Monitor BMP - Monitor electrolytes # Diabetes mellitus, type II, chronic. Globin A1c 5.9% Recently well controlled on glipizide. - Continue current management . Exam Vital Signs (Last) Date Time Temp Pulse Resp B/P Pulse Ox O2 Delivery O2 Flow Rate FiO2 01/27/17 08:58 37.2 66 16 133/57 98 Room Air 01/26/17 17:10 2 Exam General: Obese older gentleman in good spirits HEENT: sclerae anicteric, oral mucosa moist Neck: no JVD, supple no adenopathy Chest: clear to auscultation, no wheeze or rales Cardiac: S1S2, regular, II/ systolic murmur Abdomen: BS normal, non-tender Extremities: No pitting edema Neuro: A&O, cranial nerves symmetric, motor strength 5/5, coordination normal, Test 01/26/17 13:18 01/26/17 16:00 01/26/17 17:21 01/26/17 22:50 Magnesium Level 1.8mg/dL (1.6-2.6) Thyroid Stimulating Hormone (TSH) 2.500uIU/mL (0.450-4.500) Urine Color Yellow (YELLOW) Urine Appearance Clear (CLEAR,HAZY) Urine pH 5.5 (5.0-8.0) Urine Specific [place] 1.020 (1.003-1.035) Urine Protein 100mg/dL (NEG,TRACE) Urine Glucose (UA) Negativemg/dL (NEGATIVE) Urine Ketones Negativemg/dL (NEGATIVE) Urine Occult Blood Small (NEGATIVE) Urine Nitrite Negative (NEGATIVE) Urine Bilirubin Negative (NEGATIVE) Urine Urobilinogen Normalmg/dL (NORMAL) Urine Leukocyte Esterase Negative (NEGATIVE) Urine RBC 0-2/hpf (0-2) Urine WBC 0-5/hpf (0-5) Urine Epithelial Cells Occasional/hpf (NONE-MOD) Urine Crystals None seen (NONE SEEN) Urine Bacteria None/hpf (NONE-FEW) Urine Hyaline Casts None/lpf (NONE) Urine Granular Casts None seen (NONE SEEN) Urine Waxy Casts None seen (NONE SEEN) Urine Red Blood Cell Casts None seen (NONE SEEN) Urine White Blood Cell Casts None seen (NONE SEEN) Urine Mucus None seen (None Seen) Urine Trichomonas None seen (NONE SEEN) Urine Yeast None (NONE SEEN) Urinalysis Comment None Urine Culture Reflexed Not indicated Hemoglobin A1c 5.9% (4.8-5.6) Total Creatine Kinase 108U/L (21-232) Creatine Kinase MB 4.8ng/mL (0.0-10.4) Creatine Kinase MB % % (0.0-5.0) Troponin T 0.050ug/L (0.0-0.011) Test 01/27/17 03:00 White Blood Count 8.9th/mm3 (3.8-10.1) Red Blood Count 3.39mil/mm3 (4.40-5.80) Hemoglobin 10.5g/dL (13.8-17.2) Hematocrit 31.7% (41.0-50.0) Mean Corpuscular Volume 93.5fL (81-100) Mean Corpuscular Hemoglobin 31.0pg (27.0-35.0) Mean Corpuscular Hemoglobin Concent 33.1% (32.0-37.0) Red Cell Distribution Width 12.9% (12.3-15.4) Platelet Count 169bil/L (150-400) Neutrophils (%) (Auto) 77.6% (40-74) Lymphocytes (%) (Auto) 9.2% (14-46) Monocytes (%) (Auto) 11.2% (4-12) Eosinophils (%) (Auto) 1.7% (0-5) Basophils (%) (Auto) 0.2% (0-3) Sodium Level 136mEq/L (134-144) Potassium Level 4.6mEq/L (3.5-5.2) Chloride Level 103mEq/L (97-108) Carbon Dioxide Level 19mmol/L (18-29) Blood Urea Nitrogen 37mg/dL (8-27) Creatinine 1.48mg/dL (0.76-1.27) Estimat Glomerular Filtration Rate 49mL/min (>59) Glucose Level 95mg/dL (60-99) Calcium Level 8.9mg/dL (8.5-10.1) Total Bilirubin 0.5mg/dL (0.0-1.2) Aspartate Amino Transf (AST/SGOT) 16U/L (0-50) Alanine Aminotransferase (ALT/SGPT) 11U/L (0-44) Alkaline Phosphatase 45U/L (25-160) Total Protein 5.9g/dL (6.4-8.4) Albumin 3.5g/dL (3.4-5.0) Triglycerides Level 117mg/dL (0-149) Cholesterol Level 138mg/dL (100-199) LDL Cholesterol, Calculated 76.600mg/dL (0-99) VLDL Cholesterol 23.400mg/dL HDL Cholesterol 38mg/dL (>39) Cholesterol/HDL Ratio 3.63 (0.0-4.4) Lipase 34U/L (13-60) Discharge Medications Discharge Medications ([laxative pill]) 1 TAB PO QAM (Reported) Aspirin (Aspirin) 81 Mg Tablet 81 MG PO HS (Reported) Atorvastatin (Lipitor) 40 Mg Tablet 40 MG PO DAILY (Reported) Cholecalciferol (Vitamin D3) (Vitamin D3) 5,000 Unit Tab.rapdis 5,000 UNIT PO DAILY (Reported) Finasteride (Finasteride) 1 Mg Tablet 0.5 MG PO HS (Reported) Glipizide ER (Glipizide ER) 2.5 Mg Tab.er.24 2.5 MG PO DAILY (Reported) Lisinopril (Lisinopril) 2.5 Mg Tablet Unknown Dose PO DAILY (Reported) Melatonin/Pyridoxine HCl (B6) (Melatonin 10 mg Tablet) 1 Each Tab.mphase 1 EACH PO HS (Reported) Metoprolol Tartrate (Metoprolol Tartrate) 25 Mg Tablet 12.5 MG PO BID (Reported ) Pantoprazole DR (Pantoprazole DR) 20 Mg Tablet.dr 20 MG PO DAILY Prescribed by: RA DE LOS SANTOS MD Terazosin (Terazosin) 5 Mg Capsule 5 MG PO HS (Reported) Zolpidem (Zolpidem) 5 Mg Tablet 5 MG PO HS (Reported) As needed Cyclobenzaprine (Cyclobenzaprine) 10 Mg Tablet 10 MG PO TID PRN PRN Spasm ( Reported) Additional med instructions The prescription is given for pantoprazole to reduce acid in the stomach. We recommend to take this for 1 month and then consider discontinuing if you have no recurrence of symptoms. Followup Plan Disposition: Home Follow-up plan Follow-up with PCP regarding symptomatic relief with PPI. Patient advised to return to ED for recurrent acute symptoms. Discharge Diet: No restrictions Discharge Activity: No restrictions Patient Instructions We did not establish a clear diagnosis of your stomach and lower anterior chest pain. It seems most likely that this is related to the stomach or esophagus. It is also possible this was related to the pancreas. Although the blood test for heart injury was elevated, this is due to your chronic kidney disease. You did not show evidence of a myocardial infarction. It is important that you be reevaluated if you have recurrence of your symptoms. Follow-up Provider: Alyx Seth MD Follow-up with PCP in: 1 week (for posthospitalization follow-up appointment) Provider: Yemi Mckenzie MD Follow-up in: Other (at your next scheduled follow-up, or sooner if you have recurrent symptoms) Time spent 35 minutes copies to: Alyx Seth MD; Yemi Mckenzie MD, Jeffrey W MD Jan 27, 2017 10:36
[2017-01-27] MEDS ORDERED: FINASTERIDE PO SCH (21:00)
== END 2017-01-27 11:46 | disposition home or self-care (01) | DRG 392 ==
LOC: SED 12:57 → PCC 17:05
PROVIDERS: ADMIT Internal Medicine; ATTEND Internal Medicine
DX: R10.13 Epigastric pain (principal); I12.9 Hypertensive chronic kidney disease with stage 1 through stage 4 chronic kidney disease, or unspecified chronic kidney disease; N18.9 Chronic kidney disease, unspecified; N40.0 Benign prostatic hyperplasia without lower urinary tract symptoms; R07.9 Chest pain, unspecified; Z96.653 Presence of artificial knee joint, bilateral; E78.2 Mixed hyperlipidemia; K21.9 Gastro-esophageal reflux disease without esophagitis; M43.07 Spondylolysis, lumbosacral region; Z86.73 Personal history of transient ischemic attack (TIA), and cerebral infarction without residual deficits; Z79.82 Long term (current) use of aspirin; Z95.1 Presence of aortocoronary bypass graft

== ENCOUNTER → 2017-02-24 | Day surgery (SDC) | payer MEDICARE, OTHER ==
[~2017-02-24] VITALS: Ht 167.6 cm; Wt 95.2 kg
[~2017-02-24] MED LIST changes: +CHOL500062 PO; -CLOB15CR3 TOP; +GLIP2.5T2 PO; -GLPZ5T PO; -LISI10TA PO; +LISI2.5T PO; -MELA10CA2 PO; +MELA1TAB21 PO; +METO25TA6 PO; -METO50TA3 PO; +OMEP20CA11 PO; +PANT20TA2 PO; +[UNRECOGNIZED DRUG - REMARK] PO
[2017-02-24 08:41] VITALS: BP 159/68; PULSE 58; RESP 16; O2SAT 98
[2017-02-24] MEDS: Lactated Ringer's 1,000 ML IV ONE (09:05)
[2017-02-24 09:13] VITALS: BP 116/63; PULSE 50; RESP 17; O2SAT 96
--- NOTE | 2017-02-24 09:21 | ENDO ---
[address] [address] ENDOSCOPY PROCEDURE PATIENT: ESE MILLER : 1940 MR#: [id number] ADMIT: 02/24/2017 JOB ID: [id number] DATE: 02/24/2017 TYPE OF OPERATION: Esophagogastroduodenoscopy with biopsy. PREOPERATIVE DIAGNOSIS(ES): Gastroesophageal reflux disease. POSTOPERATIVE DIAGNOSIS(ES): Mild nonerosive gastritis. ANESTHESIA: Monitored anesthesia care. COMPLICATIONS: None. BLOOD LOSS: Minimal. DESCRIPTION OF PROCEDURE: After risks and benefits were explained to the patient, informed consent was obtained. After anesthesia was administered, upper endoscope was then inserted into mouth intubating the esophagus, stomach, second portion of duodenum. Mucosa carefully examined. After procedure was done, the scope was withdrawn and procedure terminated. FINDINGS: Upon inspection of the esophagus, the esophagus was normal without masses, ulcers or lesions. Z-line located 40 cm from the incisors. Upon entering the stomach, there was mild nonerosive gastritis that was seen. No masses or ulcers were seen. Retroflexion was normal. Duodenal bulb, first and second portion normal. Biopsies taken of the antrum, body and distal esophagus. IMPRESSIONS: Mild nonerosive gastritis. RECOMMENDATION: 1. Await pathology results. 2. Followup in GI clinic as needed.
[2017-02-24 09:22] VITALS: BP 103/50; PULSE 45; RESP 15; O2SAT 97
[2017-02-24 09:32] VITALS: BP 110/55; PULSE 56; RESP 17; O2SAT 95
--- NOTE | 2017-02-24 17:19 | PCM.HPANE ---
Patient Data Surgeon Admitting Provider: Attending Provider:Mick Ladd MD Primary Care Physician:Alyx Seth MD Other Provider: Reason for Visit Epigastric Pain Ht/WT & BMI Height (Feet): 5 Height (Inches): 6 Weight (Kilograms): 95.25 Body Mass Index 33.00 Allergies Coded Allergies: No Known Allergies (Verified , 01/26/17) Past Anesthesia History Anesthesia History: Denies:: Abnormal Airway, Anesthesia Reactions, Difficult Intubation, Fam Anesthesia Reaction, Fam Malignant Hypertherm, Malignant Hyperthermia Diabetes History Hx Diabetes?: Yes Type of Diabetes: Type II Glycemic Control: Oral Medication Current Bedside Blood Glucose: 112 MRSA MRSA: No Medications Blood Thinner: Aspirin Last Dose Blood Thinner: Feb 23, 2017 Home Meds Incl Beta Socorro: Yes Date Beta Socorro Taken: Feb 24, 2017 Time Beta Socorro Taken: 0700 Reported Medications Omeprazole 20 Mg Capsule.dr20 Mg PO DAILY Ref 0 02/24/17 [laxative pill] No Conflict Check1 Tab PO QAM 01/26/17 Glipizide ER 2.5 Mg Tab.er.242.5 Mg PO DAILY #30 01/26/17 Cholecalciferol (Vitamin D3) (Vitamin D3)5,000 Unit Tab.rapdis5,000 Unit PO DAILY 01/26/17 Melatonin/Pyridoxine HCl (B6) (Melatonin 10 mg Tablet)1 Each Tab.mphase1 Each PO HS 01/26/17 Lisinopril 2.5 Mg TabletUnknown Dose PO DAILY 30 Days Ref 0 01/26/17 Metoprolol Tartrate 25 Mg Ibywto14.5 Mg PO BID 30 Days Ref 0 01/26/17 Finasteride 1 Mg Tablet0.5 Mg PO HS 01/12/17 Aspirin 81 Mg Vcjzit67 Mg PO HS Ref 0 01/12/17 Zolpidem 5 Mg Tablet5 Mg PO HS Ref 0 07/26/15 Terazosin 5 Mg Capsule5 Mg PO HS Ref 0 07/26/15 Cyclobenzaprine 10 Mg Cddccp70 Mg PO TID PRN Spasm 07/26/15 Atorvastatin (Lipitor)40 Mg Rplafv23 Mg PO DAILY Ref 0 07/26/[address] 20 Mg Tablet.dr20 Mg PO DAILY #30 TABLET Ref 0 Prov:Jonnie Luna MD 01/27/17 History History of ENT Problems?: Yes HEENT History: Denies:: Abnormal Airway Cataracts Difficult Intubation Dysphagia Hearing Problem Sinus Problem Denture Type: None Teeth Condition: Within Normal Limits Hx of Heart Problems?: Yes Cardiovascular History: Positive for:: Cardiac Surgery (4 VESSEL CABG 2008) Hypertension Denies:: AICD Atrial Fibrillation Chest Pain Congestive Heart Failure Edema Heart Murmur Irregular Heartbeat Pacemaker Thrombophlebitis Valvular Heart Disease Hx of Respiratory Problem?: No Respiratory History: Positive for:: Chest Surgery (CABG) Denies:: Asthma COPD Cough Dyspnea Emphysema Hemoptysis Pneumonia Tuberculosis Use of C-PAP Machine (KIRIT+ but doesn't tolerate CPAP) Hx Neurologic Problems?: Yes Neurological History: Positive for:: Headaches Denies:: Alzheimer's Disease CVA Dementia Dizziness Parkinson's Disease Seizures Hx of GI Problems?: Yes Hx of Problems?: No Male Hx: Positive for:: Prostate Problems (BPH) Denies:: Scrotal Mass Testicular Surgery Skin History: Positive for:: History Skin Disorders? (PSORIASIS) Denies:: Pressure Ulcers Hx Musculoskeletal Problems?: Yes Musculoskeletal History: Positive for:: Joint Replacement (CELY KNEES) Musculoskeletal Trauma (S/P LT SHOULDER RPR,LT PATELLAR TENDON RPR) Denies:: Back Injury Fibromyalgia Hx of Psycho/Social Problems?: Yes Psycho Social History: Positive for:: Anxiety Hx Depression (PT "TEARY EYED" IN ADMIT) Suicide Attempt (15 years ago before being treated for-no attempt made since) Denies:: Bipolar Disorder Hx Surgeries?: Yes (4 WAY BYPASS, KNEE REPL CELY., ENDARTERECTOMY, ROTATOR CUFF) Hx Any Other Health Problems?: Yes Other History: Positive for:: Hospitalization Denies:: Cancer Endocrine Disease Thyroid Disease History Blood Transfusions: Positive for:: Blood Transfusions Denies:: Blood Transfuse Reaction Hx Diabetes: YesBedside Blood Glucose: 112 Hx Alcohol Use: Yes (BEER 3 TIMES PER WEEK )Hx Substance Use: No Smoking Status: Never Smoker Have You Smoked inLast 12 mo: No Stop/Bang Treated for Sleep Apnea?: Yes Do You Have a CPAP Machine?: No (HASNT USED IN OVER 5 YRS ) Risk Assessment Category Category 1A: Patient has history of documented sleep apnea, and HAS NOT received any narcotic, sedative or anesthesia administration during this stay. Category 1B: Patient has history of documented sleep apnea, and HAS received any narcotic , sedative or anesthesia administration during this stay Category 2: Patient has SUSPECTED Obstructive Sleep Apnea, and HAS received any narcotic , sedative or anesthesia administration during this stay. Category 3: Patient has SUSPECTED Obstructive Sleep Apnea and HAS NOT received narcotic, sedative or anesthesia administration during this stay. Category 4: Outpatient in Procedural Areas with known sleep apnea or who screen positive for High Risk via the STOP/BANG questionnaire. Exam Exam Vital Signs Vital Signs Date Time Temp Pulse Resp B/P Pulse Ox O2 Delivery O2 Flow Rate FiO2 02/24/17 09:32 56 17 110/55 95 Room Air 02/24/17 09:22 45 15 103/50 97 Room Air General Appearance: Alert, Oriented X3, Cooperative, No Acute Distress HEENT/AIRWAY: MP 2 Lungs: Normal Air Movement Heart: Regular Rate/Rhythm Meds/Labs/Diagnostics Admission Meds Current Medications Lactated Ringer's (Lr) 1,000 ml @ ud STK-MED ONCE IV Last administered on 02/24t 09:05; Start 02/24/17 at 09:05; Stop 02/24/17 at 09:10; Status DC Bedside Blood Glucose: 112 Plan Impression Patient chart reviewed, patient interviewed and anesthestic plan with risks, benefits, and alternatives discussed, and informed consent obtained. ASA Physical Status: ASA2 Mod Systemic Disease Anesthetic Plan: MAC Bene/Risks/Altern/Consents: Yes HP Complete Prior to Induction: Yes Rene Quiles MD Feb 24, 2017 17:19
--- NOTE | 2017-02-24 17:20 | PCM.ANEP1 ---
Post Anesthesia PACU Phase 1 Assessment Vital Signs Vital Signs Date Time Temp Pulse Resp B/P Pulse Ox O2 Delivery O2 Flow Rate FiO2 02/24/17 09:32 56 17 110/55 95 Room Air 02/24/17 09:22 45 15 103/50 97 Room Air Anesthetic Administered: MAC Level of Alertness: Awake, talking Pain: No Nausea or Vomiting: No CV Function & Hydration Stable: Yes Airway Device: None Oxygen Delivery: Room Air Lungs: Normal Air Movement PACU Phase 2 Assessment Complications: No Follow up Care: N/A Patient Instructions Provided: N/A Rene Quiles MD Feb 24, 2017 17:19
--- NOTE | 2017-02-27 16:15 | PATH ---
SURGICAL PATHOLOGY Attending Physician:Mick Ladd MD CASE STATUS: Signed Out PATIENT NAME: ESE MILLER PID: [id number] : 1940 DATE COLLECTED:02/24/2017 19:03 SPECIMEN: 1: Stomach, Antrum, Biopsy 2: Gastric, Biopsy 3: Esophagus, Biopsy CLINICAL HISTORY: 1). ANTRUM BIOPSY 2). GASTRIC BODY BIOPSY RULE OUT H PYLORI 3). DISTAL ESOPHAGUS BIOPSY FINAL DIAGNOSIS: 1. Antrum, Biopsy: - Gastric antral-type mucosa with chronic gastritis. - Negative for Helicobacter pylori microorganisms by immunohistochemistry. - Negative for intestinal metaplasia. - Negative for dysplasia or malignancy. 2. Gastric Body, Biopsy, Rule Out H. Pylori: - Gastric body-type mucosa with chronic gastritis. - Negative for Helicobacter pylori microorganisms by immunohistochemistry. - Negative for intestinal metaplasia. - Negative for dysplasia or malignancy. 3. Distal Esophagus, Biopsy: - Squamous mucosa with no diagnostic abnormality. - Intraepithelial eosinophils are not increased. - Negative for dysplasia or malignancy. - Separate fragment of cadia-fundic type mucosa with chronic inflammation. - Negative for Helicobacter pylori microorganisms by immunohistochemistry. - Negative for intestinal metaplasia. - Negative for dysplasia or malignancy. ICD10: K21.9 GROSS DESCRIPTION: The specimen is received in three formalin filled containers labeled with the patient's name. 1). The specimen is labeled "antrum" and consists of 2 portions of tissue which aggregate to 0.3 x 0.3 x 0.2 CM. The specimen is entirely submitted in cassette 1A. 2). The specimen is labeled "gastric body" and consists of 2 portions of tissue which aggregate to 0.3 x 0.2 x 0.2 CM. The specimen is entirely submitted in cassette 2A. 3). The specimen is labeled "distal esophagus" and consists of 2 portions of tissue which aggregate to 0.2 x 0.2 x 0.2 CM. The specimen is totally submitted in cassette 3A. 02/24/2017DC MICRO DESCRIPTION: Part 1, 2) An immunohistochemical stain has been performed to evaluate for Helicobacter pylori microorganisms. The control stain showed appropriate reactivity. * This test was developed and its performance characteristics determined by [facility]. It has not been cleared or approved by the U.S. Food and Drug Administration. The FDA has determined that such clearance or approval is not necessary. This test is used for clinical purposes. It should not be regarded as investigational or for research. ICD-9 CODES: CPT CODES: 1: 75999, 53508 2: 24509, 47999 3: 44587 Electronically Signed Out Sahil Mcmillan MD [facility] [address], [place] [address] Technical component performed at [facility], [facility] [address], [place], [address]
== END | disposition home or self-care (01) ==
LOC: END 01:42
PROVIDERS: ATTEND Internal Medicine Gastroenterology
DX: K29.50 Unspecified chronic gastritis without bleeding (principal); K21.9 Gastro-esophageal reflux disease without esophagitis; I25.10 Atherosclerotic heart disease of native coronary artery without angina pectoris; E78.2 Mixed hyperlipidemia; E11.9 Type 2 diabetes mellitus without complications; I10 Essential (primary) hypertension; F32.9 Major depressive disorder, single episode, unspecified; F41.9 Anxiety disorder, unspecified; Z95.5 Presence of coronary angioplasty implant and graft